=== PATIENT | male | born 1935 | race Caucasian/White ===

== ENCOUNTER 2018-06-14 11:19 | Emergency (ER) | payer MEDICARE, OTHER ==
[~2018-06-14] VITALS: Ht 182.9 cm; Wt 79.3 kg
[~2018-06-14 11:19] MED LIST: CHANTIX; FINASTERIDE; OXYC1TAB7 PO; TAMS0.4C2 PO
[2018-06-14 11:21] VITALS: BP 129/65
== END 2018-06-14 11:56 | disposition home or self-care (01) ==
LOC: ED 11:40
DX: K02.9 Dental caries, unspecified (principal)
CPT/HCPCS: 99283

== ENCOUNTER 2018-07-07 19:21 | Emergency (ER) | payer MEDICARE ==
[~2018-07-07] VITALS: Ht 182.9 cm; Wt 77.2 kg
--- NOTE | 2018-07-07 19:22 | NUR ---
Pt called for triage, registration notes that he went to the bathroom.
--- NOTE | 2018-07-07 19:32 | NUR ---
assessment made. PA at bedside.
[2018-07-07] MEDS ORDERED: PROPOFOL 10 MG/ML, 20ML ONE (21:06)
--- NOTE | 2018-07-07 21:15 | NUR ---
PROCEDURE STARTED. MEDICATION GIVEN BY
--- NOTE | 2018-07-07 21:35 | NUR ---
procedure ended. patient drowsy but awake. VSS
--- NOTE | 2018-07-07 22:40 | NUR ---
patient alert and awake. discharged with prescription and instruction to follow up to GI MD. verbalized understanding.
[2018-07-07 22:56] VITALS: BP 136/83
== END 2018-07-07 23:16 | disposition home or self-care (01) ==
LOC: ED 22:34
DX: T18.120A Food in esophagus causing compression of trachea, initial encounter (principal); F17.210 Nicotine dependence, cigarettes, uncomplicated
CPT/HCPCS: 88305; 99152; 99285